=== PATIENT | female | born 2000 | race Caucasian/White ===

== ENCOUNTER → 2021-08-05 | Outpatient (CLI) | payer BC ==
--- NOTE | 2021-08-06 20:43 | HOLTMON ---
[facility] Test Date: 2021-08-05 Pat Name: RADHA MADDEN Department: Room: - Gender: Female [place] [employer] Operator: AYDINKAITLINABBIE : [id number] Requested By: Jessenia WOLFP Order Number: [id number] Reading MD: Jaime Abarca Interpretive Statements Total analysis duration 21 hours 4 minutes. Predominant sinus rhythm with heart rates from 69-130 bpm; average heart rate 89 bpm. No atrial fibrillation detected. Infrequent PACs including a few atrial couplets and 2 atrial Tachycardia runs (longest 8 beats). Frequent PVCs [Total 6787] including some ventricular couplets and 3 ventricular Triplets, episodes of ventricle bigeminy and ventricular trigeminy. No ventricular tachycardia of 4 beats or longer. Single diary entry for palpitations, heartbeats skipping correlated with sinus rhythm at 94 bpm with frequent PVCs. Electronically Signed on 08-06-2021 20:42:57 EST by Jaime Abarca
== END ==
LOC: M EKG 15:05
PROVIDERS: ATTEND Student in an Organized Health Care Education/Training Program
DX: R00.0 Tachycardia, unspecified (principal)